=== PATIENT | male | born 1945 | race African-American/Black ===

== ENCOUNTER 2018-08-25 11:23 | Inpatient (IN) | payer MEDICARE, OTHER ==
[~2018-08-25] VITALS: Ht 170.2 cm; Wt 69.4 kg
--- NOTE | 2018-08-25 23:50 | NUR ---
NURSE NOTES: Patient was brought in by ambulance service accompanied by 2 hspt tutor via gurney from ED, previously from [facility]. Patient is alert, verbally responsive, able to make needs known. denies any pain at this time. IV site noted to right hand 22g and left AC 20G, both intact. Respiration is even, no SOB, currently in RA with sp02 99%. Noted with right sided weakness. Routine admission care provided. No acute distress is noted at this time. bed is in lowest position. Call light is within easy reach while in bed. Will continue to monitor.
--- NOTE | 2018-08-25 23:55 | NUR ---
NURSE NOTES: Spoke to Dr Alanis via phone and obtained admission order. all order noted and carried out.
[2018-08-26] VITALS: BP 112/71
[2018-08-26] MEDS ORDERED: Metoprolol 25mg tab ORAL ONE ×2 (00:15→09:00)
[2018-08-26 04:00] VITALS: BP 128/76
[2018-08-26] MEDS: NovoLOG Insulin Flexpen SUBQ SCH ×4 (05:36→21:16)
[2018-08-26 05:58] LABS: BASOPHILS % (AUTO) 0.8 % (0.0-2.0); EOSINOPHILS % (AUTO) 1.8 % (0.0-3.0); HEMATOCRIT 27.8 % (42.0-52.0); HEMOGLOBIN 9.4 G/DL (14.2-18.0); LYMPHOCYTES % (AUTO) 25.7 % (20.0-45.0); MEAN CORPUSCULAR VOLUME 89 FL (80-99); MONOCYTES % (AUTO) 9.4 % (1.0-10.0); NEUTROPHILS % (AUTO) 62.3 % (45.0-75.0); PLATELET COUNT 317 K/UL (150-450); RED BLOOD COUNT 3.15 M/UL (4.70-6.10); RED CELL DISTRIBUTION WIDTH 12.6 % (11.6-14.8); WHITE BLOOD COUNT 8.2 K/UL (4.8-10.8)
[2018-08-26 06:11] LABS: ALANINE AMINOTRANSFERASE 20 U/L (12-78); ALBUMIN 2.9 G/DL (3.4-5.0); ALBUMIN/GLOBULIN RATIO 0.7 (1.0-2.7); ALKALINE PHOSPHATASE 119 U/L (46-116); ANION GAP 8 mmol/L (5-15); ASPARTATE AMINO TRANSFERASE 18 U/L (15-37); BILIRUBIN,TOTAL 0.2 MG/DL (0.2-1.0); BLOOD UREA NITROGEN 30 mg/dL (7-18); CALCIUM 9.4 MG/DL (8.5-10.1); CARBON DIOXIDE 24 MMOL/L (21-32); CHLORIDE 104 MMOL/L (98-107); CREATININE 1.6 MG/DL (0.55-1.30); POTASSIUM 4.7 MMOL/L (3.5-5.1); SODIUM 136 MMOL/L (136-145)
--- NOTE | 2018-08-26 07:30 | NUR ---
HAND-OFF: Report given to REJI Brown.
--- NOTE | 2018-08-26 07:35 | NUR ---
NURSE NOTES: Received report from REJI Valle. Patient is eating breakfast and in stable condition. No acute distress/SOB noted. Patient denies any pain/discomfort at this time. Will continue plan of care.
[2018-08-26 08:00] VITALS: BP 138/74
[2018-08-26] MEDS: Tums 500mg ORAL SCH ×2 (08:29→17:23)
[2018-08-26] MEDS: Ascorbic Acid 500mg tab ORAL SCH (08:29)
[2018-08-26] MEDS: Losartan 50mg tab ORAL SCH ×2 (08:29→21:15)
[2018-08-26] MEDS: GlipiZIDE 5mg tab ORAL SCH (08:29)
[2018-08-26] MEDS: Vitamin D 1000 IU Tab ORAL SCH (08:30)
[2018-08-26] MEDS: Aspirin Baby 81mg ORAL SCH (08:30)
[2018-08-26] MEDS: Heparin 5000 units/ml inj SUBQ SCH ×2 (08:35→21:16)
[2018-08-26] MEDS ORDERED: Vitamin D 50,000 units cap ORAL SCH (09:00)
--- NOTE | 2018-08-26 09:00 | NUR ---
NURSE NOTES: Pt seen by Dr. Garcia this morning. Notified Dr. GARCIA regarding Metoprolol and Famotine to clarify the dose. awaiting for reply.
[2018-08-26] MEDS ORDERED: Metoprolol 25mg tab ORAL SCH (09:35)
--- NOTE | 2018-08-26 10:06 | NUR ---
NURSE NOTES: Dr. Elliott made a round and BUN/Cr results notified. Noted pt and family signed for no artificial means of feeding on POLST and Dr. Elliott did not order to give IV hydration due to his cardiac problem. No new order noted.
--- NOTE | 2018-08-26 11:22 | NUR ---
NURSE NOTES: Pt transferred to Tele unit via bed with Two RNs. Bother present at the bedside. Pt alert and oriented x2 and able to make needs known. No c/o pain at this time. No signs of distress noted. IV in left hand 22g intact patent running with NS @75ml/hr. Condom cath intact, patent and yelow colored urine noted. Bed in lowest position and locked. Will continue to plan of care.
[2018-08-26 12:00] VITALS: BP 148/91
[2018-08-26 15:05] LABS: APPEARANCE,URINE CLEAR; BILIRUBIN, URINE NEGATIVE (NEGATIVE); COLOR,URINE PALE YELLOW; GLUCOSE, URINE (UA) 2+ (NEGATIVE); KETONES,URINE NEGATIVE (NEGATIVE); LEUKOCYTE ESTERASE ,URINE NEGATIVE (NEGATIVE); NITRITE,URINE NEGATIVE (NEGATIVE); PH,URINE 5 (4.5-8.0); PROTEIN,URINE NEGATIVE (NEGATIVE); UROBILINOGEN,URINE NORMAL MG/DL (0.0-1.0)
[2018-08-26 16:00] VITALS: BP 123/73
[2018-08-26] MEDS: cefTRIAXone 1 GM in D5W 55 ML IVPB SCH (16:17)
--- NOTE | 2018-08-26 16:50 | NUR ---
NURSE NOTES: Dr. Castellano paged for elevated Troponin result with 3.513. Awaiting for new order.
--- NOTE | 2018-08-26 17:00 | History and Physical Report ---
DATE OF ADMISSION: 08/25/2018 CHIEF COMPLAINT: Dehydration, intractable nausea and vomiting, diarrhea. HISTORY OF PRESENT ILLNESS: The patient is a pleasant 73-year-old male, well known to me. He has a history of diabetes, hypertension. He has a history of stroke and hemiparesis. He presented with complaints of malaise, weakness, nausea, vomiting, diarrhea for approximately 1 week. The patient was placed on antibiotic therapy for bronchitis. He was given antiemetics and antidiarrheals, but symptoms did not improve. He presented to an outside hospital. It was recommended he be transferred here for further inpatient evaluation and care. The patient is aphasic at baseline and is unable to provide any history. There are no reports of any fevers or chills. There has been a productive cough as well as some diarrhea. There have been no recent ill contacts or travel. PAST MEDICAL HISTORY: As above. PAST SURGICAL HISTORY: None. CURRENT MEDICATIONS: Reconciled and reviewed. ALLERGIES: None. FAMILY HISTORY: None. SOCIAL HISTORY: There is no known history of tobacco, ethanol, or drugs. REVIEW OF SYSTEMS: Unobtainable as the patient is nonverbal. PHYSICAL EXAMINATION: VITAL SIGNS: Temperature 98, pulse 107, respirations 18, and blood pressure 138/74. GENERAL: The patient is well developed. No apparent distress. HEART: Regular rate and rhythm. LUNGS: Lungs are clear. ABDOMEN: Soft, nontender, nondistended. EXTREMITIES: Without clubbing, cyanosis. The patient has hemiparesis noted. LABORATORY DATA: White count 8, hemoglobin 9, platelets of 317. Sodium 136, potassium 4.7, creatinine was 1.6. Chest x-ray, urine studies currently pending. ASSESSMENT: This is a pleasant male with complaints of intractable nausea and vomiting, diarrhea, cough, and congestion. Suspect that the patient has likely bronchitis. He may also have some type of gastroenteritis. Cannot rule out influenza. PLAN: IV hydration. Follow up urine studies and chest x-ray. Cardiology consultation for blood pressure management. Continue diabetic regimen. Monitor blood sugars. Maximo Alanis M.D. DR: DIAN JOB#: [id number] CC:
--- NOTE | 2018-08-26 17:19 | NUR ---
NURSE NOTES: Pt no c/o chest pain. No signs of distress noted. Still awaiting for 's reply
--- NOTE | 2018-08-26 18:06 | NUR ---
NURSE NOTES: Dr. Alanis paged for elevated Troponin result of 3.513. Recheck Troponin in AM tomorrow and STAT 2d echo ordered and order carried out.
--- NOTE | 2018-08-26 19:22 | NUR ---
NURSE NOTES: Report received from REJI Brown. patient seen in bed in semi ruffin position. alert, verbally responsive, able to make needs known. denies any pain at this timed. On RA, no SOB or respiratory distress is noted at this time. IV site is to left hand 22g and is intact. running IVF NS @75cc/hr. Bed is in lowest position. call light is within easy reach while in bed. will continue to monitor.
[2018-08-26 20:00] VITALS: BP 140/85
[2018-08-26] MEDS: Metoprolol 25mg tab ORAL SCH (21:15)
[2018-08-27] VITALS: BP 148/86
--- NOTE | 2018-08-27 00:15 | Consultation ---
DATE OF CONSULTATION: 08/26/2018 CARDIOLOGY CONSULTATION CONSULTING PHYSICIAN: Ant Castellano M.D. REQUESTING PHYSICIAN: Maximo Alanis M.D. REASON FOR CONSULTATION: Syncope and lactic acidosis. HISTORY OF PRESENT ILLNESS: This is a 73-year-old male, has a history of hypertensive heart disease who had three days of intractable nausea, vomiting, and diarrhea. He apparently passed out and was taken to [facility] emergency room where elevated lactic acid was noted and abnormal lab studies. He was transferred to this hospital for further care. PAST MEDICAL HISTORY: Hypertension, type 2 diabetes mellitus, and cerebrovascular disease with hemiparesis. ALLERGIES: None. MEDICATIONS: Reviewed and reconciled. SOCIAL HISTORY: Negative for smoking, alcohol, or substance abuse. FAMILY HISTORY: Noncontributory. REVIEW OF SYSTEMS: Not obtainable for the patient at this time. PHYSICAL EXAMINATION: VITAL SIGNS: Blood pressure 138/74, pulse rate 107, respirations 18, and afebrile. GENERAL: A well-developed, well-nourished, temporal wasting. Pale conjunctivae. Oropharynx clear. Mucous membrane is dry. NECK: Supple. Jugular venous pressure normal. Carotid upstrokes are without delay. LUNGS: Clear. CARDIAC: Regular rhythm and rate. Normal S1 and S2 with a fourth heart sound. ABDOMEN: Soft and nontender. No guarding or rebound. No hepatomegaly. EXTREMITIES: No clubbing or cyanosis. Trace edema is noted and he has hemiparesis. LABORATORY AND DIAGNOSTIC DATA: White count 8 and hemoglobin 9. Sodium 136, potassium 4.7, bicarbonate 24, BUN 30, creatinine 1.6, and troponin 3.5. TSH 0.8. Lactic acid 0.8. IMPRESSION: 1. Acute myocardial infarction. 2. Hypovolemia and dehydration. 3. Orthostatic and hypovolemic syncope. 4. Cerebrovascular disease with history of cerebrovascular accident and hemiparesis. 5. Hypertensive heart disease. 6. Type 2 diabetes mellitus. 7. Lactic acidosis, resolved. PLAN: 1. Continue beta-blockade and anti-platelet therapy. 2. Check lipid panel. 3. Serial troponin. 4. Hydration. 5. Hold diuretics. 6. Empiric antibiotics. Ant Castellano M.D. DR: JONI JOB#: [id number] CC:
[2018-08-27 04:00] VITALS: BP 135/72
[2018-08-27] MEDS: NovoLOG Insulin Flexpen SUBQ SCH ×4 (05:45→21:30)
--- NOTE | 2018-08-27 07:22 | NUR ---
HAND-OFF: Report given to Brando Silva RN.
--- NOTE | 2018-08-27 07:24 | NUR ---
NURSE NOTES: Received report from REJI Valle. Patient in bed resting, no active s/s cardiac, respiratory distress noticed at this time, SR with HR 77, on room air, AOx3. IV on left hand 22G asymptomatic, patent, intact, IV fluid running at prescribed rate. Endorsed MD aware of troponin level, SR. Bed in lowest position, side rails x2, call light within reach. Will continue to monitor.
[2018-08-27 08:00] VITALS: BP 160/84
--- NOTE | 2018-08-27 08:12 | General Progress Note ---
Assessment/Plan Problem List: (1) Diabetes ICD Codes: E11.9 - Type 2 diabetes mellitus without complications SNOMED: 68397879 (2) Acute renal failure ICD Codes: N17.9 - Acute kidney failure, unspecified SNOMED: 84998472 (3) Acute [place] ICD Codes: I21.9 - Acute myocardial infarction, unspecified SNOMED: 33431548 (4) CVA (cerebral vascular accident) ICD Codes: I63.9 - Cerebral infarction, unspecified SNOMED: 288389828 (5) Syncope ICD Codes: R55 - Syncope and collapse SNOMED: 991476422 Status: stable, progressing Assessment/Plan cont current rx antiplt rx repeat trop follow up echo cont diabetes- BS controlled. check lipids cards follow up Subjective ROS Limited/Unobtainable: No Constitutional: Reports: malaise, weakness HEENT: Reports: no symptoms Cardiovascular: Reports: no symptoms Respiratory: Reports: no symptoms Gastrointestinal/Abdominal: Reports: no symptoms Genitourinary: Reports: no symptoms Neurologic/Psychiatric: Reports: no symptoms Endocrine: Reports: no symptoms Hematologic/Lymphatic: Reports: no symptoms Allergies: Coded Allergies: NO KNOWN ALLERGIES (Verified Allergy, Unknown, 08/26/18) All Systems: reviewed and negative except above Subjective no new complaints. feels better. no cp/sob/cough. +troponin noted. Objective Last 24 Hour Vital Signs Date Time Temp Pulse Resp B/P (MAP) Pulse Ox O2 Delivery O2 Flow Rate FiO2 08/27/18 08:00 98.6 74 18 160/84 (109) 99 08/27/18 04:00 98.4 77 18 135/72 (93) 97 08/27/18 03:22 63 08/27/18 00:00 98.2 70 18 148/86 (106) 98 08/26/18 23:28 63 08/26/18 21:15 77 127/70 08/26/18 21:15 127/70 08/26/18 21:00 Room Air 08/26/18 20:00 98.5 73 18 140/85 (103) 98 08/26/18 19:40 74 08/26/18 16:00 98.6 73 20 123/73 (90) 99 08/26/18 15:38 72 08/26/18 12:00 80 08/26/18 12:00 98.2 96 22 148/91 (110) 100 08/26/18 09:47 107 138/74 08/26/18 08:29 138/74 Intake and Output 08/26/18 08/27/18 19:00 07:00 Intake Total 390 ml 925 ml Output Total 300 ml 850 ml Balance 90 ml 75 ml Intake Oral 240 ml 100 ml IV Total 150 ml 825 ml Output Urine Total 300 ml 850 ml # Voids 2 # Bowel Movements 2 Laboratory Tests 08/26/18 14:02: Urine Color Pale yellow, Urine Appearance Clear, Urine pH 5, Urine Specific [place] 1.015, Urine Protein Negative, Urine Glucose (UA) 2+H, Urine Ketones Negative, Urine Blood Negative, Urine Nitrite Negative, Urine Bilirubin Negative , Urine Urobilinogen Normal, Urine Leukocyte Esterase Negative 08/26/18 16:10: Lactic Acid Level 0.80, Troponin I 3.513H, Thyroid Stimulating Hormone (TSH) 0.884 Height (Feet): 5 Height (Inches): 7.00 Weight (Pounds): 156 General Appearance: WD/WN, alert Neck: supple Cardiovascular: normal rate, regular rhythm Respiratory/Chest: chest wall non-tender, lungs clear, normal breath sounds Abdomen: normal bowel sounds, non tender, soft, no organomegaly Edema: no edema noted Arm (L), no edema noted Arm (R), no edema noted Leg (L), no edema noted Leg (R), no edema noted Pedal (L), no edema noted Pedal (R), no edema noted Generalized Maximo Alanis MD Aug 27, 2018 08:12
[2018-08-27] MEDS: GlipiZIDE 5mg tab ORAL SCH (08:14)
[2018-08-27] MEDS: Aspirin Baby 81mg ORAL SCH (08:15)
[2018-08-27] MEDS: Losartan 50mg tab ORAL SCH ×2 (08:15→21:28)
[2018-08-27] MEDS: Metoprolol 25mg tab ORAL SCH ×2 (08:15→21:28)
[2018-08-27] MEDS: Vitamin D 1000 IU Tab ORAL SCH (08:15)
[2018-08-27] MEDS: Ascorbic Acid 500mg tab ORAL SCH (08:15)
[2018-08-27] MEDS: Tums 500mg ORAL SCH ×2 (08:15→17:14)
[2018-08-27] MEDS: Heparin 5000 units/ml inj SUBQ SCH ×2 (08:17→21:29)
[2018-08-27 11:07] LABS: ALANINE AMINOTRANSFERASE 23 U/L (12-78); ALBUMIN 3.2 G/DL (3.4-5.0); ALBUMIN/GLOBULIN RATIO 0.7 (1.0-2.7); ALKALINE PHOSPHATASE 141 U/L (46-116); ANION GAP 9 mmol/L (5-15); ASPARTATE AMINO TRANSFERASE 26 U/L (15-37); BILIRUBIN,TOTAL 0.3 MG/DL (0.2-1.0); BLOOD UREA NITROGEN 19 mg/dL (7-18); CARBON DIOXIDE 26 MMOL/L (21-32); CHLORIDE 104 MMOL/L (98-107); CHOLESTEROL 129 MG/DL (< 200); CREATININE 1.3 MG/DL (0.55-1.30); HDL CHOLESTEROL 45 MG/DL (40-60); SODIUM 139 MMOL/L (136-145); TRIGLYCERIDES 89 MG/DL (30-150)
--- NOTE | 2018-08-27 11:50 | Diagnostic Imaging Report ---
Indication: Cough Technique: One view of the chest Comparison: none Findings: Lungs and pleural space are clear. The heart size is upper limits of normal. Upper mediastinum is unremarkable Impression: No acute process
[2018-08-27 12:00] VITALS: BP 145/85
[2018-08-27 16:00] VITALS: BP 145/89
[2018-08-27] MEDS: cefTRIAXone 1 GM in D5W 55 ML IVPB SCH (16:03)
--- NOTE | 2018-08-27 19:15 | NUR ---
NURSE NOTES: Received report from Siva Hathaway RN. Pt is resting in RA w/o distress. NS is running at 75/hr on LH 22G IV. HOB kept 30 degree. Bed in lowest position and breaks are engaged. Urinal, Call light and side table are w/in reach. Will follow plans of care.
--- NOTE | 2018-08-27 19:19 | Cardiology Report ---
APPROVED REPORT EXAM: Two-dimensional and M-mode echocardiogram with Doppler and color Doppler. INDICATION Acute myocard infarction M-Mode DIMENSIONS IVSd0.9 (0.7-1.1cm)Left Atrium (MM)2.6 (1.6-4.0cm) LVDd4.8 (3.5-5.6cm)Aortic Root3.7 (2.0-3.7cm) PWd0.9 (0.7-1.1cm)Aortic Cusp Exc.1.5 (1.5-2.0cm) IVSs1.2 cm LVDs3.5 (2.5-4.0cm) PWs1.0 cm Normal left ventricular chamber size, systolic function and wall motion. Left ventricular ejection fraction estimated to be 55%. Mild left ventricular hypertrophy by 2-D. Anterior Echo-free space, may be due to pericardial fat or effusion. All other cardiac chamber sizes are within normal limits. Aortic valve calcification with normal cusp excursion . Mildly thickened mitral valve leaflets with normal excursion. Moderately mitral annulus and aortic root calcification. Pulmonic valve not well visualized. IVC at normal size with physiologic collapse . A color flow and spectral Doppler study was performed and revealed: No aortic insufficiency . Mitral diastolic velocities suggest reduced left ventricular relaxation c/w mild LV diastolic dysfunction (Grade I ) Trace mitral regurgitation. Mild tricuspid regurgitation. Tricuspid systolic velocities suggests peak right ventricular systolic pressure of 30 mmHg.
--- NOTE | 2018-08-27 19:39 | Cardiology Report ---
APPROVED REPORT EKG Measurement Heart [id number] Normal sinus rhythm Cannot rule out Anterior infarct, age undetermined Abnormal ECG
--- NOTE | 2018-08-27 19:40 | NUR ---
HAND-OFF: Report given to REJI Mckeon.
[2018-08-27 20:00] VITALS: BP 139/81
--- NOTE | 2018-08-27 23:02 | NUR ---
NURSE NOTES: Pt was assisted to use cup and straw. Pt is resting in the bed w/o distress. No c/o pain at this time. SR in the conveyor monitor. Will continue to monitor.
[2018-08-28] VITALS: BP 137/77
--- NOTE | 2018-08-28 02:30 | Progress Note ---
DATE: 08/27/2018 CARDIOLOGY PROGRESS NOTE SUBJECTIVE: The patient has no chest pain or shortness of breath. Troponin level was elevated yesterday. OBJECTIVE: VITAL SIGNS: Blood pressure 160/84, pulse 74, respirations 18, and afebrile. LUNGS: Clear. CARDIAC: Regular. Normal S1, S2 with a fourth heart sound. ABDOMEN: Soft. EXTREMITIES: No edema. DIAGNOSTIC DATA: EKG reveals sinus rhythm with poor R-wave progression, possible anterior infarction of indeterminate age. Echocardiogram with normal ejection fraction and mild degenerative valve disease. Repeat troponin is down to 1.5. Pro-natriuretic peptide 1100. BUN 19 and creatinine 1.3. LDL is 61. IMPRESSION: 1. Acute myocardial infarction. 2. Orthostatic and hypovolemic syncopal episode. 3. Cannot exclude cardiac arrhythmia in the setting of acute myocardial infarction. 4. Type 2 diabetes mellitus. 5. Acute kidney injury. 6. Cerebrovascular disease with prior cerebrovascular accident. 7. Acute diastolic congestive heart failure. PLAN: 1. Antiplatelet therapy. 2. Continue angiotensin receptor familia and beta-familia with titration based on clinical parameters. 3. Add low-dose statin. No present role for diuresis. 4. Taper off IV fluids. 5. Medical conservative management. Ant Castellano M.D. DR: SANDOVAL JOB#: [id number] CC:
[2018-08-28 04:00] VITALS: BP 146/72
[2018-08-28] MEDS: NovoLOG Insulin Flexpen SUBQ SCH ×4 (06:17→21:02)
[2018-08-28 06:48] LABS: ALANINE AMINOTRANSFERASE 24 U/L (12-78); ALBUMIN 2.8 G/DL (3.4-5.0); ALBUMIN/GLOBULIN RATIO 0.7 (1.0-2.7); ALKALINE PHOSPHATASE 119 U/L (46-116); ANION GAP 6 mmol/L (5-15); ASPARTATE AMINO TRANSFERASE 15 U/L (15-37); BILIRUBIN,TOTAL 0.3 MG/DL (0.2-1.0); BLOOD UREA NITROGEN 16 mg/dL (7-18); CALCIUM 9.8 MG/DL (8.5-10.1); CARBON DIOXIDE 28 MMOL/L (21-32); CHLORIDE 105 MMOL/L (98-107); CREATININE 1.4 MG/DL (0.55-1.30); POTASSIUM 3.9 MMOL/L (3.5-5.1); SODIUM 139 MMOL/L (136-145)
--- NOTE | 2018-08-28 07:15 | NUR ---
HAND-OFF: Report given to Siva Hathaway RN.
--- NOTE | 2018-08-28 07:45 | NUR ---
NURSE NOTES: Received report from REJI Mckeon. Patient in bed resting, no active s/s cardiac, respiratory distress noticed at this time. Patient on room air, SR with HR 82, denies pain at this time, AOX3. IV on left hand 22G asymptomatic, patent, intact, IV fluid running at prescribed rate. Bed in lowest position, side rails upx3, call light within reach. Will continue to monitor.
[2018-08-28 08:00] VITALS: BP 158/102
[2018-08-28] MEDS: Ascorbic Acid 500mg tab ORAL SCH (08:28)
[2018-08-28] MEDS: Losartan 50mg tab ORAL SCH ×2 (08:29→20:58)
[2018-08-28] MEDS: Metoprolol 25mg tab ORAL SCH ×2 (08:29→20:57)
[2018-08-28] MEDS: Tums 500mg ORAL SCH ×2 (08:29→17:27)
[2018-08-28] MEDS: Vitamin D 1000 IU Tab ORAL SCH (08:29)
[2018-08-28] MEDS: Aspirin Baby 81mg ORAL SCH (08:29)
[2018-08-28] MEDS: GlipiZIDE 5mg tab ORAL SCH (08:29)
[2018-08-28] MEDS: Heparin 5000 units/ml inj SUBQ SCH ×2 (08:34→20:59)
--- NOTE | 2018-08-28 09:23 | General Progress Note ---
Assessment/Plan Problem List: (1) Diabetes ICD Codes: E11.9 - Type 2 diabetes mellitus without complications SNOMED: 50178573 (2) Acute renal failure ICD Codes: N17.9 - Acute kidney failure, unspecified SNOMED: 50904322 (3) Acute [place] ICD Codes: I21.9 - Acute myocardial infarction, unspecified SNOMED: 65323839 (4) CVA (cerebral vascular accident) ICD Codes: I63.9 - Cerebral infarction, unspecified SNOMED: 968225360 (5) Syncope ICD Codes: R55 - Syncope and collapse SNOMED: 595017163 Status: stable Assessment/Plan cont current rx antiplt rx repeat trop cont diabetes- BS controlled. check lipids cards noted. conservative rx Subjective ROS Limited/Unobtainable: No Constitutional: Reports: malaise, weakness HEENT: Reports: no symptoms Cardiovascular: Reports: no symptoms Respiratory: Reports: no symptoms Gastrointestinal/Abdominal: Reports: no symptoms Genitourinary: Reports: no symptoms Neurologic/Psychiatric: Reports: pre-existing deficit Endocrine: Reports: no symptoms Hematologic/Lymphatic: Reports: no symptoms Allergies: Coded Allergies: NO KNOWN ALLERGIES (Verified Allergy, Unknown, 08/26/18) All Systems: reviewed and negative except above Subjective no new complaints. feels better. no cp/sob/cough. troponin trending down. echo with normal ef Objective Last 24 Hour Vital Signs Date Time Temp Pulse Resp B/P (MAP) Pulse Ox O2 Delivery O2 Flow Rate FiO2 08/28/18 08:29 86 158/102 08/28/18 08:29 158/102 08/28/18 08:00 98.2 86 20 158/102 (120) 98 08/28/18 04:00 98.3 82 20 146/72 (96) 97 08/28/18 03:28 70 08/28/18 00:00 97.0 67 20 137/77 (97) 97 08/27/18 23:37 64 08/27/18 21:28 76 139/81 08/27/18 21:28 139/81 08/27/18 21:00 Room Air 08/27/18 20:00 98.0 76 20 139/81 (100) 98 08/27/18 20:00 73 08/27/18 16:00 97.9 73 20 145/89 (107) 99 08/27/18 16:00 83 08/27/18 12:00 97.9 71 20 145/85 (105) 100 08/27/18 12:00 64 Intake and Output 08/27/18 08/28/18 19:00 07:00 Intake Total 620 ml 120 ml Balance 620 ml 120 ml Intake Oral 620 ml 120 ml # Voids 4 Laboratory Tests 08/27/18 10:20: Sodium Level 139, Potassium Level 5.0, Chloride Level 104, Carbon Dioxide Level 26, Anion Gap 9, Blood Urea Nitrogen 19H, Creatinine 1.3, Estimat Glomerular Filtration Rate , Glucose Level 208H, Calcium Level 10.0, Total Bilirubin 0.3, Aspartate Amino Transf (AST/SGOT) 26, Alanine Aminotransferase (ALT/SGPT) 23, Alkaline Phosphatase 141H, Troponin I 1.528H, Pro-B-Type Natriuretic Peptide 1165H, Total Protein 7.6, Albumin 3.2L, Globulin 4.4, Albumin/Globulin Ratio 0.7L, Triglycerides Level 89, Cholesterol Level 129, LDL Cholesterol 61, HDL Cholesterol 45, Cholesterol/HDL Ratio 2.9L 08/28/18 05:10: Sodium Level 139, Potassium Level 3.9, Chloride Level 105, Carbon Dioxide Level 28, Anion Gap 6, Blood Urea Nitrogen 16, Creatinine 1.4H, Estimat Glomerular Filtration Rate , Glucose Level 157H, Calcium Level 9.8, Total Bilirubin 0.3, Aspartate Amino Transf (AST/SGOT) 15, Alanine Aminotransferase (ALT/SGPT) 24, Alkaline Phosphatase 119H, Troponin I 1.070H, Total Protein 7.1, Albumin 2.8L, Globulin 4.3, Albumin/Globulin Ratio 0.7L, Thyroid Stimulating Hormone (TSH) 1.355 Height (Feet): 5 Height (Inches): 7.00 Weight (Pounds): 156 Objective General Appearance: WD/WN, alert Neck: supple Cardiovascular: normal rate, regular rhythm Respiratory/Chest: chest wall non-tender, lungs clear, normal breath sounds Abdomen: normal bowel sounds, non tender, soft, no organomegaly Edema: no edema noted Arm (L), no edema noted Arm (R), no edema noted Leg (L), no edema noted Leg (R), no edema noted Pedal (L), no edema noted Pedal (R), no edema noted Generalized [place] Graciela. MD Aug 28, 2018 09:23
[2018-08-28 12:00] VITALS: BP 141/84
--- NOTE | 2018-08-28 13:05 | NUR ---
CASE MANAGEMENT:REVIEW 73 YR OLD MALE TRANSFERRED FROM [place] CC: INTRACTABLE N/V/D. COUGH AND CONGESTION SI: LIKELY BRONCHITIS AND GASTROENTERITIS 97.0 82 20 112/71 100% ON RA H/H-9.4/27.8 BUN+30 CR+1.6 TROPONIN(+) 3.513 IS: HCTZ PO X1 LOPRESSOR PO X1 : DIRECTLY ADMITTED TO TELEMETRY
--- NOTE | 2018-08-28 13:10 | NUR ---
CASE MANAGEMENT:REVIEW 08/28/18 SI: AMI. ACUTE CHF. TAMMI 97.7 75 20 128/76 97% ON RA TROPONIN(+) 1.070 IS: IVF@50/HR LOPRESSOR PO Q12 COZAAR PO Q12 ASA PO QD HEPARIN SQ Q12 IV ROCEPHIN Q23 : TELEMETRY STATUS
[2018-08-28 16:00] VITALS: BP 149/87
[2018-08-28] MEDS: cefTRIAXone 1 GM in D5W 55 ML IVPB SCH (16:09)
--- NOTE | 2018-08-28 19:40 | NUR ---
HAND-OFF: Report given to REJI Lu.
--- NOTE | 2018-08-28 19:41 | NUR ---
NURSE NOTES: Received report from REJI Silva. Patient in bed awake showing no signs of acute distress. VS stable. Respiration even and non labored on room air. No SOB noted. IV line patent and intact. Bed alarm armed and locked. Bed in lowest position. Call light within reach. All needs attended and met. Will continue plan of care.
[2018-08-28 20:00] VITALS: BP 143/77
[2018-08-29] VITALS: BP 133/81
[2018-08-29 04:00] VITALS: BP 123/74
--- NOTE | 2018-08-29 04:15 | Progress Note ---
DATE: 08/28/2018 CARDIOLOGY PROGRESS NOTE SUBJECTIVE: The patient has no respiratory distress. He denies chest pain or shortness of breath. As noted yesterday, echocardiogram revealed normal ejection fraction. OBJECTIVE: VITAL SIGNS: Blood pressure is labile 137/77 to 158/102, heart rate 70 to 86, respiratory rate 20, and afebrile. NECK: Supple. LUNGS: Clear. CARDIAC: Regular. Normal S1, S2 with a fourth heart sound. ABDOMEN: Soft. EXTREMITIES: No edema. LABORATORY DATA: Sodium 139, potassium 3.9, bicarbonate 28, BUN 16, and creatinine 1.4. Troponin down to 1.07. Albumin 2.8. IMPRESSION: 1. Acute myocardial infarction. 2. Accelerated hypertension with hypertensive heart disease. 3. Chronic diastolic congestive heart failure. 4. Cerebrovascular disease with history of cerebrovascular accident. 5. Favorable lipid panel with LDL of 61 and HDL of 45. 6. Moderate protein-calorie malnutrition. 7. Chronic kidney disease. 8. Type 2 diabetes mellitus. PLAN: 1. Continue anti-platelet therapy. 2. Advance beta-familia for additional antihypertensive and antianginal benefits. 3. Discontinue intravenous fluids. 4. Maintain losartan and add very low-dose statin. 5. Medical management. Ant Castellano M.D. DR: SANDOVAL JOB#: [id number] CC:
[2018-08-29] MEDS: NovoLOG Insulin Flexpen SUBQ SCH ×4 (06:09→20:55)
[2018-08-29 07:46] LABS: ANION GAP 7 mmol/L (5-15); BLOOD UREA NITROGEN 14 mg/dL (7-18); CALCIUM 9.7 MG/DL (8.5-10.1); CARBON DIOXIDE 28 MMOL/L (21-32); CHLORIDE 105 MMOL/L (98-107); CREATININE 1.4 MG/DL (0.55-1.30); SODIUM 140 MMOL/L (136-145)
--- NOTE | 2018-08-29 07:50 | NUR ---
HAND-OFF: Report given to REJI Mao.
[2018-08-29 08:00] VITALS: BP 140/78
--- NOTE | 2018-08-29 08:17 | General Progress Note ---
Assessment/Plan Problem List: (1) Diabetes ICD Codes: E11.9 - Type 2 diabetes mellitus without complications SNOMED: 39766532 (2) Acute renal failure ICD Codes: N17.9 - Acute kidney failure, unspecified SNOMED: 91056732 (3) Acute [place] ICD Codes: I21.9 - Acute myocardial infarction, unspecified SNOMED: 81027029 (4) CVA (cerebral vascular accident) ICD Codes: I63.9 - Cerebral infarction, unspecified SNOMED: 204763542 (5) Syncope ICD Codes: R55 - Syncope and collapse SNOMED: 601193764 Status: stable Assessment/Plan cont current rx antiplt rx repeat trop cont diabetes- BS controlled. lipids controlled cards noted. conservative rx pt/ot Subjective ROS Limited/Unobtainable: No Constitutional: Reports: malaise, weakness HEENT: Reports: no symptoms Cardiovascular: Reports: no symptoms Respiratory: Reports: no symptoms Gastrointestinal/Abdominal: Reports: no symptoms Genitourinary: Reports: no symptoms Neurologic/Psychiatric: Reports: pre-existing deficit Endocrine: Reports: no symptoms Hematologic/Lymphatic: Reports: no symptoms Allergies: Coded Allergies: NO KNOWN ALLERGIES (Verified Allergy, Unknown, 08/26/18) All Systems: reviewed and negative except above Subjective no new complaints. feels better. no cp/sob/cough. cards noted Objective Last 24 Hour Vital Signs Date Time Temp Pulse Resp B/P (MAP) Pulse Ox O2 Delivery O2 Flow Rate FiO2 08/29/18 04:00 97.9 68 18 123/74 (90) 96 08/29/18 04:00 73 08/29/18 00:00 97.5 79 18 133/81 (98) 97 08/29/18 00:00 65 08/28/18 21:00 Room Air 08/28/18 20:58 143/77 08/28/18 20:57 98 143/77 08/28/18 20:00 81 08/28/18 20:00 98.2 73 18 143/77 (99) 98 08/28/18 16:00 76 08/28/18 16:00 97.2 67 20 149/87 (107) 99 08/28/18 12:00 64 08/28/18 12:00 98.1 75 20 141/84 (103) 99 08/28/18 09:00 Room Air 08/28/18 08:29 86 158/102 08/28/18 08:29 158/102 Intake and Output 08/28/18 08/29/18 19:00 07:00 Intake Total 830 ml 351.6 ml Balance 830 ml 351.6 ml Intake Oral 830 ml IV Total 351.6 ml # Voids 2 3 Laboratory Tests 08/29/18 06:49: Sodium Level 140, Potassium Level 4.0, Chloride Level 105, Carbon Dioxide Level 28, Anion Gap 7, Blood Urea Nitrogen 14, Creatinine 1.4H, Estimat Glomerular Filtration Rate , Glucose Level 147H, Calcium Level 9.7 Height (Feet): 5 Height (Inches): 7.00 Weight (Pounds): 153 Objective General Appearance: WD/WN, alert Neck: supple Cardiovascular: normal rate, regular rhythm Respiratory/Chest: chest wall non-tender, lungs clear, normal breath sounds Abdomen: normal bowel sounds, non tender, soft, no organomegaly Edema: no edema noted Arm (L), no edema noted Arm (R), no edema noted Leg (L), no edema noted Leg (R), no edema noted Pedal (L), no edema noted Pedal (R), no edema noted Generalized Maximo Alanis MD Aug 29, 2018 08:17
--- NOTE | 2018-08-29 08:20 | NUR ---
NURSE NOTES: Received report and patient from Aly MENDOZA in bed resting, denies any pain, no s/s of distress noted. IV is intact and patent. Bed is in lowest level and brakes engaged for safety. Call light within reach. Will continue with the plan of care.
[2018-08-29] MEDS: Losartan 50mg tab ORAL SCH ×2 (08:54→20:51)
[2018-08-29] MEDS: Tums 500mg ORAL SCH ×2 (08:54→17:23)
[2018-08-29] MEDS: GlipiZIDE 5mg tab ORAL SCH (08:54)
[2018-08-29] MEDS: Metoprolol 25mg tab ORAL SCH ×2 (08:55→20:52)
[2018-08-29] MEDS: Ascorbic Acid 500mg tab ORAL SCH (08:55)
[2018-08-29] MEDS: Aspirin Baby 81mg ORAL SCH (08:55)
[2018-08-29] MEDS: Vitamin D 1000 IU Tab ORAL SCH (08:55)
[2018-08-29] MEDS: Heparin 5000 units/ml inj SUBQ SCH ×2 (08:57→20:54)
[2018-08-29 12:00] VITALS: BP 136/84
[2018-08-29 16:00] VITALS: BP 122/66
--- NOTE | 2018-08-29 16:15 | NUR ---
CASE MANAGEMENT:REVIEW 08/29/18 SI: AMI. ACUTE CHF. TAMMI 98.1 65 20 136/84 100% ON RA CR+1.4 IS: IVF@50/HR LOPRESSOR PO Q12 COZAAR PO Q12 ASA PO QD HEPARIN SQ Q12 IV ROCEPHIN Q24 : TELEMETRY STATUS
[2018-08-29] MEDS: cefTRIAXone 1 GM in D5W 55 ML IVPB SCH (17:09)
--- NOTE | 2018-08-29 19:33 | NUR ---
HAND-OFF: Report given to REJI Lu.
[2018-08-29 20:00] VITALS: BP 152/83
[2018-08-30] VITALS (7 sets, daily range): BP systolic 138–161; BP diastolic 73–87
--- NOTE | 2018-08-30 04:00 | Progress Note ---
DATE: 08/29/2018 CARDIOLOGY PROGRESS NOTE SUBJECTIVE: The patient is without complaints. He has less cough and congestion. No shortness of breath. OBJECTIVE: VITAL SIGNS: Blood pressure 123/74, pulse 68, and respirations 18. LUNGS: Few rhonchi. CARDIAC: Regular rhythm and rate. Normal S1, S2. ABDOMEN: Soft. EXTREMITIES: No edema. LABORATORY DATA: Sodium 140, potassium 4, bicarb 28, BUN 14, and creatinine 1.4. IMPRESSION: 1. Acute oog-GE-rcsvyiabr myocardial infarction. 2. Acute on chronic diastolic congestive heart failure. 3. Hypertensive heart disease. 4. Diabetes mellitus type 2 with controlled blood glucose. 5. Chronic kidney disease. 6. Cerebrovascular disease. PLAN: 1. Recheck laboratory studies. 2. Continue medical management. 3. Further cardiovascular intervention only for any signs of ongoing ischemia, heart failure, or malignant arrhythmias. Ant Castellano M.D. DR: SANDOVAL JOB#: [id number] CC:
[2018-08-30] MEDS: NovoLOG Insulin Flexpen SUBQ SCH ×4 (07:14→20:51)
--- NOTE | 2018-08-30 07:25 | NUR ---
HAND-OFF: Report given to REJI Mao.
--- NOTE | 2018-08-30 07:30 | NUR ---
OBTAINED REPORT FROM ANTONIA MENDOZA. PT IN BED EATING BREAKFAST, IN STABLE CONDITION.
[2018-08-30 07:36] LABS: EOSINOPHILS % (AUTO) 4.3 % (0.0-3.0); HEMATOCRIT 28.6 % (42.0-52.0); HEMOGLOBIN 9.6 G/DL (14.2-18.0); LYMPHOCYTES % (AUTO) 37.7 % (20.0-45.0); MEAN CORPUSCULAR VOLUME 89 FL (80-99); MONOCYTES % (AUTO) 10.5 % (1.0-10.0); NEUTROPHILS % (AUTO) 46.4 % (45.0-75.0); PLATELET COUNT 343 K/UL (150-450); RED BLOOD COUNT 3.23 M/UL (4.70-6.10); RED CELL DISTRIBUTION WIDTH 12.6 % (11.6-14.8); WHITE BLOOD COUNT 6.9 K/UL (4.8-10.8)
--- NOTE | 2018-08-30 08:04 | General Progress Note ---
Assessment/Plan Problem List: (1) Diabetes ICD Codes: E11.9 - Type 2 diabetes mellitus without complications SNOMED: 49109172 (2) Acute renal failure ICD Codes: N17.9 - Acute kidney failure, unspecified SNOMED: 45356608 (3) Acute [place] ICD Codes: I21.9 - Acute myocardial infarction, unspecified SNOMED: 06627753 (4) CVA (cerebral vascular accident) ICD Codes: I63.9 - Cerebral infarction, unspecified SNOMED: 306796613 (5) Syncope ICD Codes: R55 - Syncope and collapse SNOMED: 973379433 Status: stable Assessment/Plan cont current rx antiplt rx repeat trop cont diabetes- BS controlled. lipids controlled cards noted. conservative rx pt/ot Subjective ROS Limited/Unobtainable: No Constitutional: Reports: malaise, weakness HEENT: Reports: no symptoms Cardiovascular: Reports: no symptoms Respiratory: Reports: no symptoms Gastrointestinal/Abdominal: Reports: no symptoms Genitourinary: Reports: no symptoms Neurologic/Psychiatric: Reports: pre-existing deficit Endocrine: Reports: no symptoms Hematologic/Lymphatic: Reports: no symptoms Allergies: Coded Allergies: NO KNOWN ALLERGIES (Verified Allergy, Unknown, 08/26/18) All Systems: reviewed and negative except above Subjective no new complaints. feels better. no cp/sob/cough. cards noted d/w son.pt has history of stents [facility] Objective Last 24 Hour Vital Signs Date Time Temp Pulse Resp B/P (MAP) Pulse Ox O2 Delivery O2 Flow Rate FiO2 08/30/18 04:00 97.6 66 20 150/79 (102) 97 08/30/18 04:00 60 08/30/18 00:00 72 08/30/18 00:00 98.0 69 20 157/87 (110) 97 08/29/18 21:00 Room Air 08/29/18 20:52 68 152/83 08/29/18 20:51 152/83 08/29/18 20:00 98.0 68 20 152/83 (106) 97 08/29/18 20:00 66 08/29/18 16:00 86 08/29/18 16:00 97.9 86 20 122/66 (84) 100 08/29/18 12:00 65 08/29/18 12:00 98.1 65 20 136/84 (101) 100 4/10/19 09:00 Room Air 08/29/18 08:55 83 140/78 08/29/18 08:54 140/78 Intake and Output 08/29/18 08/30/18 19:00 07:00 Intake Total 240 ml Output Total 850 ml Balance -610 ml Intake Oral 240 ml Output Urine Total 850 ml # Voids 3 3 # Bowel Movements 1 Laboratory Tests 08/30/18 06:45: White Blood Count 6.9, Red Blood Count 3.23L, Hemoglobin 9.6L, Hematocrit 28.6L , Mean Corpuscular Volume 89, Mean Corpuscular Hemoglobin 29.6, Mean Corpuscular Hemoglobin Concent 33.5, Red Cell Distribution Width 12.6, Platelet Count 343, Mean Platelet Volume 4.9L, Neutrophils (%) (Auto) 46.4, Lymphocytes ( %) (Auto) 37.7, Monocytes (%) (Auto) 10.5H, Eosinophils (%) (Auto) 4.3H, Basophils (%) (Auto) 1.0, Sodium Level [Pending], Potassium Level [Pending], Chloride Level [Pending], Carbon Dioxide Level [Pending], Blood Urea Nitrogen [ Pending], Creatinine [Pending], Estimat Glomerular Filtration Rate [Pending], Glucose Level [Pending], Calcium Level [Pending], Total Bilirubin [Pending], Aspartate Amino Transf (AST/SGOT) [Pending], Alanine Aminotransferase (ALT/SGPT ) [Pending], Alkaline Phosphatase [Pending], Troponin I [Pending], Pro-B-Type Natriuretic Peptide [Pending], Total Protein [Pending], Albumin [Pending], Globulin [Pending] Height (Feet): 5 Height (Inches): 7.00 Weight (Pounds): 153 Objective General Appearance: WD/WN, alert Neck: supple Cardiovascular: normal rate, regular rhythm Respiratory/Chest: chest wall non-tender, lungs clear, normal breath sounds Abdomen: normal bowel sounds, non tender, soft, no organomegaly Edema: no edema noted Arm (L), no edema noted Arm (R), no edema noted Leg (L), no edema noted Leg (R), no edema noted Pedal (L), no edema noted Pedal (R), no edema noted Generalized [place],Maximo M. MD Aug 30, 2018 08:04
[2018-08-30 08:11] LABS: ALANINE AMINOTRANSFERASE 33 U/L (12-78); ALBUMIN 2.8 G/DL (3.4-5.0); ALBUMIN/GLOBULIN RATIO 0.7 (1.0-2.7); ALKALINE PHOSPHATASE 111 U/L (46-116); ANION GAP 7 mmol/L (5-15); ASPARTATE AMINO TRANSFERASE 20 U/L (15-37); BILIRUBIN,TOTAL 0.2 MG/DL (0.2-1.0); BLOOD UREA NITROGEN 13 mg/dL (7-18); CALCIUM 9.6 MG/DL (8.5-10.1); CARBON DIOXIDE 27 MMOL/L (21-32); CHLORIDE 106 MMOL/L (98-107); CREATININE 1.3 MG/DL (0.55-1.30); POTASSIUM 3.8 MMOL/L (3.5-5.1); SODIUM 140 MMOL/L (136-145)
--- NOTE | 2018-08-30 08:27 | NUR ---
NURSE NOTES: DA FROM LAB CALLED TO REPORT TROPONIN OF 0.377. NOTIFIED DR. GARCIA.
[2018-08-30] MEDS: Tums 500mg ORAL SCH ×2 (08:55→17:07)
[2018-08-30] MEDS: Ascorbic Acid 500mg tab ORAL SCH (08:56)
[2018-08-30] MEDS: Aspirin Baby 81mg ORAL SCH (08:56)
[2018-08-30] MEDS: GlipiZIDE 5mg tab ORAL SCH (08:56)
[2018-08-30] MEDS: Vitamin D 1000 IU Tab ORAL SCH (08:57)
[2018-08-30] MEDS: Metoprolol 25mg tab ORAL SCH (08:59)
[2018-08-30] MEDS: Losartan 50mg tab ORAL SCH ×2 (08:59→20:46)
[2018-08-30] MEDS: Heparin 5000 units/ml inj SUBQ SCH ×2 (09:00→20:57)
[2018-08-30] MEDS: cefTRIAXone 1 GM in D5W 55 ML IVPB SCH (15:34)
--- NOTE | 2018-08-30 19:00 | NUR ---
HAND-OFF: Report given to Sherin MENDOZA. Pt resting in bed free from apparent distress.
--- NOTE | 2018-08-30 19:29 | NUR ---
NURSE NOTES: Report received from REJI Underwood. Pt is in stable condition and lying comfortably in bed. Bed is in the lowest position with bed brakes engaged. Side rails are up x3 with call light within reach. Will continue to monitor.
[2018-08-30] MEDS: Metoprolol Tartrate 50mg tab ORAL SCH (20:47)
[2018-08-31] VITALS: BP 149/88
[2018-08-31 04:00] VITALS: BP 147/86
[2018-08-31] MEDS: NovoLOG Insulin Flexpen SUBQ SCH ×2 (06:19→12:59)
--- NOTE | 2018-08-31 07:14 | NUR ---
HAND-OFF: Report given to REJI Hoang. Plan of care endorsed.
[2018-08-31 08:00] VITALS: BP 144/89
[2018-08-31] MEDS: Aspirin Baby 81mg ORAL SCH (08:53)
[2018-08-31] MEDS: Ascorbic Acid 500mg tab ORAL SCH (08:54)
[2018-08-31] MEDS: Losartan 50mg tab ORAL SCH (08:54)
[2018-08-31] MEDS: Tums 500mg ORAL SCH (08:54)
[2018-08-31] MEDS: Vitamin D 1000 IU Tab ORAL SCH (08:54)
[2018-08-31] MEDS: GlipiZIDE 5mg tab ORAL SCH (08:54)
[2018-08-31] MEDS: Metoprolol Tartrate 50mg tab ORAL SCH (08:55)
[2018-08-31] MEDS: Heparin 5000 units/ml inj SUBQ SCH (08:56)
--- NOTE | 2018-08-31 10:12 | NUR ---
CASE MANAGEMENT:REVIEW 08/31/18 SI: AMI. ACUTE CHF. TAMMI 97.9 94 16 144/89 99% ON RA IS: IVF@50/HR LOPRESSOR PO Q12 COZAAR PO Q12 ASA PO QD HEPARIN SQ Q12 IV ROCEPHIN Q24 : TELEMETRY STATUS
--- NOTE | 2018-08-31 10:44 | NUR ---
ST NOTE: BEDSIDE SWALLOW EVAL RECEIVED BEDSIDE SWALLOW EVAL ORDER CHART REVIEWED PRIOR THE EVALUATION. REFERRED BY DR. GARCIA. PT IS A 73-YEAR-OLD GENTLEMAN WHO WAS TRANSFERRED FROM [facility] DUE TO SYNCOPE. PER [facility] ER REPORT, PT ALSO HAD AN EPISODE OF NAUSEA AND VOMITING ? RML INFILTRATE. DYSPHAGIA RISK FACTORS: H/O CVA W/ RESIDUE R UPPER EXTREMITY WEAKNESS, H/O DEMENTIA, DM, HTN, AND ALSO PT WAS ON ANTIBIOTIC THERAPY FOR BRONCHITIS(?WHEN), H/O STENTS AT [facility], PER CXR: NO ACUTE PROCESS. PLOF: PT RESIDES AT HOME. CURRENT STATUS: PT SEEN AT THE EDGE OF BED. ALERT, COOPERATIVE, PROBABLE PT HAS ELAT-BG-TPEANZZ, PT DID NOT FOLLOW DIRECTIONS WHEN REQUESTED, PT WAS ANSWERED SOME BASIC QUESTIONS INCONSISTENTLY. NO RESPIRATORY DISTRESS WAS NOTED. SPOKE TO PT'S CAREGIVER AT BEDSIDE. PER CAREGIVER, PT INCREASED DIFFICULTY MASTICATING SOLID FOOD, AND PT HAD EPISODE OF VOMITING WHEN PT CHOKED. PT TOLERATED OKAY WITH OATMEAL AND FINELY CHOPPED FOOD AND THIN LIQUIDS. UNABLE TO ASSESS PT'S ORAL MOTOR FUNCTION PT DID NOT FOLLOW DIRECTIONS. GIVEN PO TRIALS: THIN(CUP-SELF), PUREE(TSP) AND MASTICATED SOLID. PT IS ON REGULAR DIET. INITIAL IMPRESSION: PT HAS UPPER DENTURE ONLY, MISSING ALL BOTTOM MOLAR TEETH. SLOW AND PROLONGED ROTARY CHEW, MILDLY DELAYED ORAL TRANSIT TIME(3 TO 4 SECS) FROM MOUTH TO LARYNGEAL ELEVATION, APPEARED MILDLY REDUCED LARYNGEAL ELEVATION, NO OVERT S/S OF ASPIRATION. GIVEN PT HAS H/O CVA, PT HAS RISK FOR (SILENT) ASPIRATION. RECOMMENDATIONS: 1. FOR QUALITY OF LIFE, CONTINUE ORAL DIET. CHANGED DIET TO CCHO(LOW) [facility] SOFT(GROUND) WITH THIN LIQUIDS DIET 2. STRICT ASPIRATION PRECAUTIONS WITH DIRECT SUPERVISION. 3. MODIFIED BARIUM SWALLOW STUDY IP OR OP TO R/O ANY (SILENT) ASPIRATION RISK AND OBJECTIVELY ASSESS PT'S SWALLOWING FUNCTION. 4. SPEECH/LANGUAGE/COGNITIONS EVAL. 5. CONSIDER UPPER GI IF NEEDED. D/W PT'S CAREGIVER, AND RN, GERARDO. POSTED ASPIRATION/REFLUX PRECAUTIONS SIGN.
[2018-08-31] MEDS ORDERED: Imdur 30mg tab ORAL SCH (11:15)
[2018-08-31 12:00] VITALS: BP 137/80
[2018-08-31] MEDS ORDERED: COZAAR50 MG ORAL (12:46)
[2018-08-31] MEDS ORDERED: TUMS500 MG ORAL (12:46)
[2018-08-31] MEDS ORDERED: ISOSORBIDE MONO30 M1 ORAL (12:46)
[2018-08-31] MEDS ORDERED: ASPIRIN81 MG ORAL (12:46)
[2018-08-31] MEDS ORDERED: PRAVACHOL20 MG ORAL (12:46)
[2018-08-31] MEDS ORDERED: GLIPIZIDE5 MG ORAL (12:46)
[2018-08-31] MEDS ORDERED: METOPROLOL TART50 MG ORAL (12:46)
--- NOTE | 2018-08-31 15:08 | NUR ---
NURSE NOTES: Pt was discharged per MD orders. Pt accompanied by his care manager. Belongings are with patient and signed belongings is in chart. Heart monitor was removed and returned to [place]. IV removed. No swelling or redness noted. PT stable at time of DC.
--- NOTE | 2018-08-31 18:45 | Progress Note ---
DATE: 08/31/2018 CARDIOLOGY PROGRESS NOTE SUBJECTIVE: The patient has no chest pain or shortness of breath. Blood pressure parameters still remain on high range. OBJECTIVE: VITAL SIGNS: Today, blood pressure 144/89, heart rate 94, and respiratory rate 18. NECK: Supple. LUNGS: Clear. CARDIAC: Regular. Normal S1, S2 with a fourth heart sound. ABDOMEN: Soft. EXTREMITIES: No edema. IMPRESSION: 1. Acute myocardial infarction. 2. Hypertensive heart disease. 3. Acute on chronic diastolic congestive heart failure, improved and clinically compensated. 4. Moderate protein-calorie malnutrition. PLAN: 1. Maintain anti-platelet therapy. 2. Statin drug. 3. Discontinue intravenous fluids. 4. Add long-acting nitrates. 5. Consider additional antihypertensives if blood pressure parameters remain elevated. Ant Castellano M.D. DR: SANDOVAL JOB#: [id number] CC:
--- NOTE | 2018-08-31 18:45 | Progress Note ---
DATE: 08/30/2018 Late entry for 08/30/2018 SUBJECTIVE: The patient continues to feel well with no chest pain or shortness of breath. He is mostly bedridden. OBJECTIVE: VITAL SIGNS: Blood pressure 150/79, pulse 66, and respiratory rate 20. LUNGS: Clear. CARDIAC: Regular. Normal S1, S2 with a fourth heart sound. ABDOMEN: Soft and nontender. EXTREMITIES: No edema. Baseline hemiparesis. LABORATORY DATA: Potassium 3.8, BUN 13, and creatinine 1.3. Troponin down to 0.377. Pro-natriuretic peptide 690. Albumin 3.8. IMPRESSION: 1. Acute myocardial infarction. 2. Hypertensive heart disease. 3. Acute on chronic diastolic congestive heart failure, improved. 4. Moderate protein-calorie malnutrition. 5. Cerebrovascular disease. 6. Anemia of chronic disease. 7. Chronic kidney disease. PLAN: 1. Medical therapy. Continue anti-platelet drugs and antianginal regimen and low-dose statin as well. 2. We will consider additional antihypertensive therapy and long-acting nitrates. Ant Castellano M.D. DR: JONI JOB#: [id number] CC:
[2018-09-01] MEDS ORDERED: Imdur 30mg tab ORAL SCH (09:00)
--- NOTE | 2018-09-03 11:10 | Discharge Summary ---
Discharge Summary Discharge Summary _ DATE OF ADMISSION: 08/25/2018 DATE OF DISCHARGE: 08/31/2018 DISCHARGED BY: Dr. Alanis REASON FOR ADMISSION: 73 years old male with past medical history of hypertensive heart disease, type 2 diabetes mellitus, cerebrovascular disease with residual hemiparesis, with 3 days of intractable nausea , vomiting and diarrhea , and cough, apparently passed out and was taken to [place] emergency room. Upon evaluation in the [place] ED, patient was noted to have elevated lactic acid and abnormal labs . The patient was transferred to [place] ER for further evaluation and management. Patient aphasic at baseline and unable to provide any history. No reported fevers or chills. Patient had productive cough and diarrhea. No reported recent ill contacts or traveling. Upon evaluation vital signs were stable. Laboratory workup revealed no leukocytosis ,hemoglobin 9.4, hematocrit 27.8. BUN 36 , creatinine 1.6. Lactic acid 0.8. Albumin 2.9. Chest x-ray revealed no acute cardiopulmonary pathology. Urinalysis revealed +2 glucose, no evidence of UTI. Influenza screen test was negative. Patient was admitted for further management. CONSULTANTS: application defense manager [facility] COURSE: Patient admitted to telemetry floor. Patient started on the IV hydration. Anesthesia Tech consult was requested for blood pressure management. Noted elevated troponin -3.513. Echocardiogram revealed preserved ejection fraction 55% with no evidence of wall motion abnormality. Mild left ventricular hypertrophy. Right ventricular systolic pressure of 30. Serial troponin with trend down. Changes EKG revealed normal sinus rhythm, no acute ischemic changes. Patient was on antiplatelet therapy with aspirin and beta blockage. Patient was continued on IV hydration. Diuretics were hold at this time as per application defense manager. As hypovolemia resolved, IV fluids stopped. Pro BNP from initial 1165 down to 690. Lipid panel was stable. Low-dose of statin was added to existing medication regimen. No need for diuresis at this time. Blood pressure was managed with beta-familia and angiotensin receptor familia with titration, based on clinical parameters. Blood pressure stabilized. Long-acting nitrate/Imdur was added to medication regimen. Last troponin - 0.377. DVT prophylaxis provided. Supplemental oxygen provided as needed to keep pulse oximetry above 92%. Pulmonary toilet provided as needed. Prior to discharge pulse oximetry was stable on room air Patient was on empiric antibiotic for bronchitis and possible gastroenteritis. Renal parameters and electrolytes were closely monitored. Electrolytes corrected as needed, and nephrotoxins were avoided. Prior to discharge BUN from 30 down to 13 and creatinine from 1.6 down to 1.3. Acute kidney injury resolved , and was likely precipitated by hypovolemia due to dehydration. Symptomatic treatment provided. Antiemetic provided as needed. Bowel regimen instituted. GI prophylaxis provided. Blood sugar was managed with the glipizide and sliding scale of insulin as needed. Patient clinically stabilized and was ready for transfer home with home health services to follow. FINAL DIAGNOSES: Acute myocardial infarction/NSTEMI Hypertensive heart disease Acute on chronic diastolic congestive heart failure- improved, currently compensated Moderate protein calorie malnutrition Hypovolemia and dehydration Orthostatic and hypovolemic syncope Cerebrovascular disease with history of cerebrovascular accident and hemiparesis Acute kidney injury-resolved Bronchitis Possible gastroenteritis Type 2 diabetes mellitus Lactic acidosis -resolved DISCHARGE MEDICATIONS: See Medication Reconciliation list. DISCHARGE INSTRUCTIONS: Patient was discharged home with home health services. Follow up with primary care provider in one week. I have been assigned to dictate discharge summary for this account. I was not involved in the patient's management. Christi Lee NP Sep 03, 2018 11:10
== END 2018-08-31 14:45 | disposition home or self-care (01) | DRG 280 ==
LOC: EDSEX 11:23 → 2W 11:23 → 2E 08-26 11:21
DX: I21.9 Acute myocardial infarction, unspecified (principal); I50.33 Acute on chronic diastolic (congestive) heart failure; N17.9 Acute kidney failure, unspecified; E44.0 Moderate protein-calorie malnutrition; I69.359 Hemiplegia and hemiparesis following cerebral infarction affecting unspecified side; E87.2 Acidosis; I11.0 Hypertensive heart disease with heart failure; K52.9 Noninfective gastroenteritis and colitis, unspecified; J40 Bronchitis, not specified as acute or chronic; E86.0 Dehydration; E86.1 Hypovolemia; I95.1 Orthostatic hypotension; E11.9 Type 2 diabetes mellitus without complications; I11.9 Hypertensive heart disease without heart failure; Z68.24 Body mass index [BMI] 24.0-24.9, adult
CPT/HCPCS: 36415; 71045; 80048; 80053; 80061; 81003; 82962; 83605; 83880; 84443; 84484; 85025; 86710; 93005; 93306; J1815